=== PATIENT | female | born 1985 | race Caucasian/White ===

== ENCOUNTER → 2019-05-20 | Outpatient (CLI) | payer OTHER ==
--- NOTE | 2019-05-22 15:24 | SLEEPHOME ---
DATE OF PROCEDURE: 05/20/2019 ORDERED BY: CAITLYN Enriquez Diagnostic home sleep testing was performed due to concern for the obstructive sleep apnea syndrome. For testing, a nocturnal T3 respiratory monitoring device was used. Continuous record was made of pulse, oxygen saturation, airflow, chest and abdominal strain and body position. 9 hours and 59 minutes of data were reviewed. There are 5 hours and 35 minutes marked as time in bed. During the interval marked time in bed, there 318 respiratory events identified of 10 seconds in duration or greater for a respiratory event index of 56.9. The events were primarily obstructive. Baseline pulse rate 75 beats per minute, pulse rate ranged 52 to 116. Baseline saturation was 90%. Lowest oxygen saturation recorded 67%. Testing was performed in both the supine and nonsupine positions. IMPRESSION: Abnormal home sleep testing with repetitive respiratory events and oxygen desaturations to 67% with a respiratory event index of 56.9 is consistent with the obstructive sleep apnea syndrome. RECOMMENDATIONS: The patient should be encouraged to undergo formal sleep evaluation at her earliest convenience.
== END ==
LOC: M SLEEP HO 12:54
PROVIDERS: ATTEND Nurse Practitioner Family
DX: G47.9 Sleep disorder, unspecified (principal)